=== PATIENT | female | born 1950 | race Caucasian/White ===

== ENCOUNTER 2017-07-31 13:29 | Emergency (ER) | payer MEDICARE ==
[~2017-07-31] VITALS: Ht 170.2 cm; Wt 57.7 kg
[2017-07-31 14:41] VITALS: Ht 170.2 cm; Wt 57.7 kg
[2017-07-31] MEDS ORDERED: ACETAMINOPHEN325 MG PO (14:53)
[2017-07-31] MEDS ORDERED: FUROSEMIDE40 MG PO (14:54)
[2017-07-31] MEDS ORDERED: HYDROCHLOROTHIA25 MG PO (14:55)
[2017-07-31] MEDS ORDERED: HYDROCODON-ACE1 EAC7 PO (14:55)
[2017-07-31] MEDS ORDERED: PREVACID15 MG PO (14:56)
[2017-07-31] MEDS ORDERED: METFORMIN HCL500 M1 PO (14:58)
[2017-07-31] MEDS ORDERED: K-DUR20 MEQ PO (14:59)
[2017-07-31] MEDS ORDERED: BETIMOL15 ML EACH EYE (15:00)
[2017-07-31] MEDS ORDERED: ULTRAM50 MG PO (15:01)
[2017-07-31] MEDS ORDERED: VITAMIN B COMPL1 TAB PO (15:02)
[2017-07-31] MEDS ORDERED: XALATAN 0.0052.5 ML EACH EYE (15:02)
[2017-08-01 05:09] VITALS: BP 152/84
== END 2017-08-01 05:09 | disposition home or self-care (01) ==
LOC: D.ER 13:29 → D.MRI 13:29 → EDSTATUS 13:30 → D.ER 08-01 05:09
DX: M54.16 Radiculopathy, lumbar region (principal)